=== PATIENT | male | born 1960 | race Caucasian/White ===

== ENCOUNTER 2019-12-31 05:45 | Emergency (ER) | payer OTHER ==
--- NOTE | 2019-12-31 06:13 | EDM.PDOC ---
ED HPI GENERAL MEDICAL PROBLEM - General Chief Complaint: Genitourinary Problem Stated Complaint: possible urinary track infection Time Seen by Provider: 12/31/19 05:58 Source of Information: Reports: Patient History Limitations: Reports: No Limitations - History of Present Illness INITIAL COMMENTS - FREE TEXT/NARRATIVE: Mr. Martinez is a very pleasant 59-year-old man with a past medical history significant for kidney stones and urinary retention in 2018 secondary to BPH. He suffered from UTIs, and required catheterization. He was eventually started on tamsulosin per his Urologist in December 2018, but by January 2019, after he had had a month of no difficulty urinating, he discontinued the tamsulosin. He has not had to catheterize since September or October 2018. He now presents the ED stating that he has been experiencing low urine output, difficulty urinating, and malodorous urine for the past 2 or 3 days. He denies dysuria. He also reports lower right flank pain, but acknowledges that that has been going on for months. No recent fever, nausea, vomiting, constipation, or diarrhea. Here in the ED, the patient is found to be tachycardic, but afebrile. The patient's PCP is Dr. Isai White. His Urologist is Dr. Melanie Soler. He did not receive an influenza vaccine this season, but agreed to receive one here today. Lower Back Pain Score (Numeric/FACES): 2 - Related Data Allergies Allergy/AdvReac Type Severity Reaction Status Date / Time atorvastatin [From Lipitor] Allergy Muscle Verified 12/31/19 05:59 Weakness Home Meds: Home Meds Lisinopril 5 mg PO DAILY 09/16/18 [History] Nitrofurantoin Macrocrystal [Nitrofurantoin] 1 cap PO Q12H #13 capsule 12/31/19 [Rx] Past Medical History Cardiovascular History: Reports: High Cholesterol ( untreated), Hypertension Genitourinary History: Reports: BPH (untreated), Renal Calculus, Retention, Urinary (2ndary to BPH) - Past Surgical History HEENT Surgical History: Reports: Oral Surgery (wisdom teeth extraction) GI Surgical History: Reports: Appendectomy Male Surgical History: Reports: Cystectomy (x 2), Lithotripsy ([facility]) Social & Family History - Tobacco Use Smoking Status *Q: Never Smoker - Caffeine Use Caffeine Use: Reports: None - Alcohol Use Alcohol Use History: No - Recreational Drug Use Recreational Drug Use: No - Living Situation & Occupation Living situation: Reports: , with Spouse Occupation: Employed (Delivers chemicals) ED ROS GENERAL - Review of Systems Review Of Systems: Comprehensive ROS is negative, except as noted in HPI. ED EXAM, RENAL/ - Physical Exam Exam: See Below Exam Limited By: No Limitations General Appearance: Alert, WD/WN, No Apparent Distress Eye Exam: Bilateral Eye: EOMI, Normal Inspection Ears: Normal External Exam, Hearing Grossly Normal Nose: Normal Inspection Throat/Mouth: Normal Inspection, Normal Lips, Normal Voice, No Airway Compromise Head: Atraumatic, Normocephalic Neck: Normal Inspection, Full Range of Motion Respiratory/Chest: No Respiratory Distress, Lungs Clear, Normal Breath Sounds, No Accessory Muscle Use Cardiovascular: Normal Peripheral Pulses, Regular Rate, Rhythm, No Edema, No Gallop, No JVD, No Murmur, No Rub GI/Abdominal: Normal Bowel Sounds, Soft, No Organomegaly, No Distention, No Abnormal Bruit, No Mass, Tender (Minimal, suprapubic only. Nontender elsewhere. ) (Male) Exam: Deferred Rectal (Males) Exam: Deferred Back Exam: Normal Inspection, Full Range of Motion. No: CVA Tenderness (L), CVA Tenderness (R) Extremities: Normal Inspection, Normal Range of Motion, No Pedal Edema, Normal Capillary Refill Neurological: Alert, Oriented, Normal Cognition, No Motor/Sensory Deficits Psychiatric: Anxious Skin Exam: Warm, Dry, Intact, Normal Color, No Rash Course - Vital Signs Last Recorded V/S: Last Vital Signs Temp 37.2 C 12/31/19 05:56 Pulse 125 H 12/31/19 05:56 Resp 16 12/31/19 05:56 BP 143/96 H 12/31/19 05:56 Pulse Ox 94 L 12/31/19 05:56 - Orders/Labs/Meds Orders: Active Orders 24 hr Category Date Time Status Bladder Scan [RC] ASDIRECTED Care 12/31/19 06:10 Active Influenza Vaccine Charge [RC] .DISCHARGE Care 12/31/19 06:11 Active CULTURE URINE [RM] Stat Lab 12/31/19 07:30 Ordered Nitrofurantoin [place]/Macrocryst [Macrobid] Med 12/31/19 07:31 Stat 100 mg PO ONETIME STA Labs: Laboratory Tests 12/31/19 Range/Units 06:20 Urine Color Yellow (Yellow) Urine Appearance Clear (Clear) Urine pH 7.0 (5.0-8.0) Ur Specific [place] 1.020 (1.005-1.030) Urine Protein 2+ H (Negative) Urine Glucose (UA) Negative (Negative) Urine Ketones Trace H (Negative) Urine Occult Blood 1+ H (Negative) Urine Nitrite Negative (Negative) Urine Bilirubin Negative (Negative) Urine Urobilinogen 1.0 (0.2-1.0) Ur Leukocyte Esterase 1+ H (Negative) Urine RBC 5-10 H (0-5) /hpf Urine WBC 50-75 H (0-5) /hpf Ur Epithelial Cells 0-5 (0-5) /hpf Urine Bacteria Moderate H (FEW) /hpf Urine Mucus Few (FEW) /hpf Meds: Medications Discontinued Medications Generic Name Dose Route Start Last Admin Trade Name Freq PRN Reason Stop Dose Admin Influenza Virus Vaccine 60 mcg 12/31/19 06:15 Fluzone Quad [id number] Syringe IM 12/31/19 06:16 .ONCE ONE - Re-Assessments/Exams Free Text/Narrative Re-Assessment/Exam: 12/31/19 06:11 In order to evaluate for a UTI or urinary retention, we will have the patient provide a clean-catch urine sample, then empty his bladder as much as possible. We will then check a postvoid bladder scan. 12/31/19 07:32 The patient's urinalysis is remarkable for 1+ occult blood with 5-10 RBCs, 1+ leukocyte esterase with 50-75 WBCs, nitrate negative with moderate bacteria, and 0-5 squamous epithelial cells. His post-void bladder scan found only 20 mL of residual urine. The patient's urinalysis is consistent with a UTI. I have ordered a urine culture, and will start the patient on oral nitrofurantoin. He should complete a 7-day course. He can also take Pyridium for a total of 6-9 doses. Departure - Departure Time of Disposition: 07:38 Disposition: Home, Self-Care 01 Condition: Good Clinical Impression: UTI (urinary tract infection) - Discharge Information *PRESCRIPTION DRUG MONITORING PROGRAM REVIEWED*: Not Applicable *COPY OF PRESCRIPTION DRUG MONITORING REPORT IN PATIENT JOSE: Not Applicable Referrals: Isai White Jr, MD [Primary Care Provider] - Melanie Soler MD [Ordering Only Provider] - Forms: ED Department Discharge Additional Instructions: You were seen in the emergency room for 2 to 3 days of low urine output with difficulty urinating, and malodorous urine. Work-up in the ER included a urinalysis and a post-void bladder scan. Your urinalysis confirmed that you have a urinary tract infection. A sample of your urine has been sent for culture. Your post-void urine bladder scan found only 20 mL of retained urine. You do not need to be catheterized. You have been started on the antibiotic nitrofurantoin, and a prescription for nitrofurantoin has been sent to the [facility], located at [address] [place] [address]. Take 1 tablet of nitrofurantoin every 12 hours, starting this evening, 12/31/2019, as prescribed. Finish the entire prescription unless told otherwise by a doctor. You have also been started on the anti-UTI pain medicine pyridium (Azo). Azo is available [id number]. You may take 1 tablet 3 times a day for 2 to 3 days, however, you should not continue to take it beyond that. Azo will turn your urine orange - that is normal. Stay adequately hydrated. It does not really matter what type of fluid you drink. We recommend that you follow-up with your Urologist, Dr. Melanie Soler, at the next available appointment, to discuss restarting your tamsulosin. If any other problems, please do not hesitate to return to the ER. Sepsis Event Note - Evaluation Sepsis Screening Result: No Definite Risk - Focused Exam Vital Signs: Vital Signs Temp Pulse Resp BP Pulse Ox 12/31/19 05:56 37.2 C 125 H 16 143/96 H 94 L Date Exam was Performed: 12/31/19 Time Exam was Performed: 07:32 - My Orders Last 24 Hours: My Active Orders 12/31/19 06:10 Bladder Scan [RC] ASDIRECTED 12/31/19 06:11 Influenza Vaccine Charge [RC] .DISCHARGE 12/31/19 07:30 CULTURE URINE [RM] Stat 12/31/19 07:31 Nitrofurantoin [place]/Macrocryst [Macrobid] 100 mg PO ONETIME STA - Assessment/Plan Last 24 Hours: My Active Orders 12/31/19 06:10 Bladder Scan [RC] ASDIRECTED 12/31/19 06:11 Influenza Vaccine Charge [RC] .DISCHARGE 12/31/19 07:30 CULTURE URINE [] Stat 12/31/19 07:31 Nitrofurantoin [place]/Macrocryst [Macrobid] 100 mg PO ONETIME STA
[2019-12-31] MEDS ORDERED: FLU Vacc QS2019-20(6MOS+)/PF 60 MCG/0.5 ML SYRINGE IM ONE (06:15)
[2019-12-31] MEDS ORDERED: Nitrofurantoin Monohydrate/Macrocrystalline 100 MG Cap PO STA (07:31)
[2019-12-31] MEDS ORDERED: Phenazopyridine 95 MG Tab PO STA (07:38)
== END 2019-12-31 08:04 | disposition home or self-care (01) ==
LOC: JD.ED 05:45
DX: N39.0 Urinary tract infection, site not specified (principal); I10 Essential (primary) hypertension; Z23 Encounter for immunization; Z88.8 Allergy status to other drugs, medicaments and biological substances; Z79.899 Other long term (current) drug therapy
CPT/HCPCS: 51798; 81001; 87086; 87088; 87186; 90471; 90686; 99284; A9270; 99283; G0008